=== PATIENT | male | born 1975 | race Hispanic/Latino ===

== ENCOUNTER 2019-11-08 15:17 | Emergency (ER) | payer SELFPAY ==
[2019-11-08] MEDS ORDERED: DOXYCYCLINE HYCLATE 100 MG TABLET PO ONE (17:20)
[2019-11-08] MEDS ORDERED: AZITHROMYCIN 250 MG TABLET PO ONE (17:21)
[2019-11-08 17:51] LABS: BASOPHILS % (AUTO) 0.5 % (0.0-5.0); EOSINOPHILS % (AUTO) 1.8 % (0.0-8.0); HEMATOCRIT 46.1 % (42-54); LYMPHOCYTES % (AUTO) 16.9 % (21.0-51.0); MEAN CORPUSCULAR HEMOGLOBIN 32.6 pg (27.0-33.0); MEAN CORPUSCULAR HGB CONC 33.8 g/dL (32.0-36.0); MEAN CORPUSCULAR VOLUME 96.2 fL (79-99); MONOCYTES % (AUTO) 4.9 % (3.0-13.0); NEUTROPHILS % (AUTO) 75.7 % (40.0-77.0); PLATELET COUNT (AUTO) 208 K/uL (130-400); RED BLOOD CELL COUNT(AUTO) 4.79 MIL/uL (4.50-6.20); RED CELL DISTRIBUTION WIDTH 11.6 % (11.0-15.5); WHITE BLOOD COUNT (AUTO) 8.3 K/uL (4.8-10.8)
[2019-11-08 18:08] LABS: CREATININE 1.1 mg/dL (0.5-1.5)
[2019-11-08 18:15] LABS: ALBUMIN 3.4 g/dL (3.5-5.0); BILIRUBIN,TOTAL 0.2 mg/dL (0.2-1.0); TOTAL PROTEIN, SERUM 7.5 g/dL (6.0-8.3)
[2019-11-08] MEDS ORDERED: SODIUM CHLORIDE 0.9% 1000ML 1,000 ML IV ONE (18:45)
== END 2019-11-08 21:10 | disposition home or self-care (01) ==
LOC: EDH 15:17
DX: A64 Unspecified sexually transmitted disease (principal); F41.9 Anxiety disorder, unspecified; F32.9 Major depressive disorder, single episode, unspecified; E11.9 Type 2 diabetes mellitus without complications; Z72.0 Tobacco use
CPT/HCPCS: 36415; 80053; 82948; 85025; 87486; 87797; 99283; J7030

== ENCOUNTER → 2022-11-17 | Outpatient (CLI) | payer OTHER | END | disposition home or self-care (01) | LOC: RAH 15:46 | PROVIDERS: ATTEND Internal Medicine | DX: S14.5XXA Injury of cervical sympathetic nerves, initial encounter (principal); X58.XXXA Exposure to other specified factors, initial encounter; Y93.89 Activity, other specified; Y92.89 Other specified places as the place of occurrence of the external cause; Y99.8 Other external cause status | CPT/HCPCS: 72040; 73502 ==

== ENCOUNTER 2023-08-18 11:23 | Emergency (ER) | payer BC, OTHER ==
[~2023-08-18] VITALS: Ht 177.8 cm; Wt 69.9 kg
[2023-08-18 11:49] VITALS: BP 126/82; PULSE 90; RESP 20; O2SAT 100
[2023-08-18] MEDS: IBUPROFEN 800 MG TAB PO ONE (12:08)
[2023-08-18] MEDS: CYCLOBENZAPRINE HCL 10 MG TABLET PO ONE (12:09)
[2023-08-18] MEDS ORDERED: IBUP-2077 PO (12:09)
== END 2023-08-18 12:20 | disposition home or self-care (01) ==
LOC: EDH 11:23
DX: S80.01XA Contusion of right knee, initial encounter (principal); E11.9 Type 2 diabetes mellitus without complications; W01.0XXA Fall on same level from slipping, tripping and stumbling without subsequent striking against object, initial encounter; Y93.89 Activity, other specified; Y92.89 Other specified places as the place of occurrence of the external cause; Y99.8 Other external cause status
CPT/HCPCS: 73562